=== PATIENT | male | born 2000 | race Caucasian/White ===

== ENCOUNTER 2021-12-13 00:05 | Emergency (ER) | payer OTHER ==
[2021-12-13 00:16] VITALS: TEMP 98.1
--- NOTE | 2021-12-13 00:44 | XR ---
EXAMINATION TYPE: XR chest 2V DATE OF EXAM: 12/13/2021 COMPARISON: 04/04/2010 HISTORY: Chest pain TECHNIQUE: FINDINGS: Heart and mediastinum are normal. Lungs are clear. Diaphragm is normal. Bony thorax is intact. IMPRESSION: Normal chest. No adverse change.
[2021-12-13] MEDS ORDERED: KETOROLAC 15 MG/ML 1 ML VIAL IM STA (01:24)
[2021-12-13 02:02] VITALS: BP 119/72; PULSE 61; RESP 16
[2021-12-13 02:03] LABS: Basophils # (A) 0.1 k/uL (0-0.2); Basophils % (A) 1 %; Eosinophils # (A) 0.2 k/uL (0-0.7); Eosinophils % (A) 1 %; HCT 44.4 % (39.0-53.0); HGB 15.3 gm/dL (13.0-17.5); Lymphocytes # (A) 5.6 k/uL (1.0-4.8); Lymphocytes % (A) 47 %; MCH 30.6 pg (25.0-35.0); MCHC 34.5 g/dL (31.0-37.0); MCV 88.8 fL (80.0-100.0); Mean Platelet Volume 7.2; Monocytes # (A) 0.6 k/uL (0-1.0); Monocytes % (A) 5 %; Neutrophils # (A) 5.3 k/uL (1.3-7.7); Neutrophils % (A) 44 %; Platelet Count 404 k/uL (150-450); RBC 5.01 m/uL (4.30-5.90); RDW 11.8 % (11.5-15.5)
[2021-12-13 02:15] LABS: ALT 22 U/L (4-49); AST 29 U/L (17-59); African American GFR (CKD) >90 (>60 ml/min/1.73 sqM); Albumin 4.9 g/dL (3.5-5.0); Alkaline Phosphatase 68 U/L (38-126); Anion Gap 15 mmol/L; Blood Urea Nitrogen 12 mg/dL (9-20); Calcium 9.9 mg/dL (8.4-10.2); Carbon Dioxide 25 mmol/L (22-30); Chloride 101 mmol/L (98-107); Glucose 95 mg/dL (74-99); Lipase 90 U/L (23-300); Magnesium 2.2 mg/dL (1.6-2.3); Non-African American GFR(CKD) >90 (>60 ml/min/1.73 sqM); Potassium 4.4 mmol/L (3.5-5.1); Sodium 141 mmol/L (137-145); Total Bilirubin 0.7 mg/dL (0.2-1.3); Total Protein 7.2 g/dL (6.3-8.2)
[2021-12-13 02:18] LABS: Partial Thromboplastin Time 26.4 sec (22.0-30.0)
--- NOTE | 2021-12-13 02:43 | ED ---
Chest Pain HPI <Anna Henderson - Last Filed: 12/13/21 02:50> - General Source: patient Mode of arrival: ambulatory <IsauraSue Jenn - Last Filed: 12/15/21 11:25> - General Chief Complaint: Chest Pain Stated Complaint: Chest Pain Time Seen by Provider: 12/13/21 00:15 - History of Present Illness Initial Comments: 21-year-old male with no past medical history presents to the emergency department with chest pain. Reports that it started earlier today. Described as a sharp shooting sensation over the left side of the chest. Pain does not radiate. No personal history of cardiac issues. Denies family history of sudden cardiac . No history of DVT or PE. No Pain or swelling. No recent travel. Denies any fevers. Did not take any medications at home for his pain. No shortness of breath. No fevers, chills or cough. No other alleviating, precipitating or modifying factors (Sue Delarosa) - Related Data Allergies Allergy/AdvReac Type Severity Reaction Status Date / Time No Known Allergies Allergy Verified 12/13/21 00:15 Review of Systems ROS Other: All systems not noted in ROS Statement are negative. <Anna Henderson - Last Filed: 12/13/21 02:50> ROS Other: All systems not noted in ROS Statement are negative. <Sue Delarosa - Last Filed: 12/15/21 11:25> ROS Statement: Those systems with pertinent positive or pertinent negative responses have been documented in the HPI. EKG Findings - EKG Comments: EKG Findings:: EKG demonstrates sinus rhythm with a rate of 78. NM interval 119. QRS 89. QTC 380. Q waves 2, 3, aVF. No acute ST segment elevations <Sue Delarosa - Last Filed: 12/15/21 11:25> Past Medical History Additional Past Medical History / Comment(s): pna as a child History of Any Multi-Drug Resistant Organisms: None Reported Past Surgical History: No Surgical Hx Reported Past Psychological History: No Psychological Hx Reported Smoking Status: Never smoker Past Alcohol Use History: None Reported Past Drug Use History: None Reported <Sue eDlarosa - Last Filed: 12/15/21 11:25> General Exam General appearance: alert, in no apparent distress Head exam: Present: atraumatic, normocephalic, normal inspection Eye exam: Present: normal appearance, PERRL, EOMI. Absent: scleral icterus, conjunctival injection, periorbital swelling ENT exam: Present: normal exam, mucous membranes moist Neck exam: Present: normal inspection. Absent: tenderness, meningismus, lymphadenopathy Respiratory exam: Present: normal lung sounds bilaterally, chest wall tenderness (left sided). Absent: respiratory distress, wheezes, rales, rhonchi, stridor Cardiovascular Exam: Present: regular rate, normal rhythm, normal heart sounds. Absent: systolic murmur, diastolic murmur, rubs, gallop, clicks GI/Abdominal exam: Present: soft, normal bowel sounds. Absent: distended, tenderness, guarding, rebound, rigid Extremities exam: Present: normal inspection, full ROM, normal capillary refill. Absent: tenderness, pedal edema, joint swelling, calf tenderness Back exam: Present: normal inspection Neurological exam: Present: alert, oriented X3, CN II-XII intact Psychiatric exam: Present: normal affect, normal mood Skin exam: Present: warm, dry, intact, normal color. Absent: rash <Sue Delarosa - Last Filed: 12/15/21 11:25> Course Vital Signs 12/13/21 12/13/21 12/13/21 00:13 01:11 02:01 Temperature 98.1 F Pulse Rate 94 61 Pulse Rate [ 94 Pulse Oximetery ] Respiratory 18 16 Rate Blood Pressure 142/90 119/72 O2 Sat by Pulse 98 100 Oximetry Chest Pain MDM <Sue Delarosa - Last Filed: 12/15/21 11:25> - MDM Upon arrival he was placed into room 18. There are history and physical exam was performed. IV access established laboratory studies are conducted. Patient given a dose of Toradol. Laboratory studies are reviewed. Troponin is negative. D-dimer is negative. Chest x-ray demonstrates no acute process. Results are discussed with the patient. Reports improvement in his pain with medication administration. Patient will be discharged home at this time. Instructed to follow up with primary care in 2-4 days. Recommend echo. Return for any new or worsening symptoms. Patient agreeable and discharged home in stable condition (Sue Delarosa) Disposition <Anna Henderson - Last Filed: 12/13/21 02:50> Is patient prescribed a controlled substance at d/c from ED?: No Time of Disposition: 02:43 <Sue Delarosa - Last Filed: 12/15/21 11:25> Clinical Impression: Chest pain Disposition: HOME SELF-CARE Condition: Stable Instructions (If sedation given, give patient instructions): Chest Pain (ED) Additional Instructions: Follow up with your primary care doctor in 2-4 days. I recommend you have an echo of your heart. Take Motrin for pain and return for any new or worsening symptoms Referrals: None,Stated [Primary Care Provider] - 1-2 days [facility] [NON[facility]] - 1-2 days
== END 2021-12-13 02:55 | disposition home or self-care (01) ==
LOC: EC 00:05
DX: R07.9 Chest pain, unspecified (principal)
CPT/HCPCS: 36415; 93005; 85379; 80053; 83690; 83735; 84484; 85025; 85610; 85730; 71046; 99285; 96372; J1885

== ENCOUNTER 2024-06-29 14:42 | Emergency (ER) | payer OTHER ==
[2024-06-29 14:50] VITALS: RESP 18; TEMP 98.7
--- NOTE | 2024-06-29 15:23 | ED ---
Wound/Laceration HPI - General Chief Complaint: Wound/Laceration Stated Complaint: L Hand Injury-[facility] Time Seen by Provider: 06/29/24 15:18 Source: patient, RN notes reviewed Mode of arrival: EMS Limitations: no limitations - History of Present Illness Initial Comments: 24-year-old male sent from work for left hand injury prior to arrival. States he was working on machinery at work when the machine came loose and cut through his left third finger. Last tetanus within 5 years. No other injuries. No blood thinners. He is right-hand dominant. - Related Data Previous Rx's Medication Instructions Recorded Cephalexin [Keflex] 500 mg PO Q12H 7 Days #14 cap 06/29/24 Allergies Allergy/AdvReac Type Severity Reaction Status Date / Time No Known Allergies Allergy Verified 06/29/24 14:50 Review of Systems ROS Statement: Those systems with pertinent positive or pertinent negative responses have been documented in the HPI. ROS Other: All systems not noted in ROS Statement are negative. Past Medical History Additional Past Medical History / Comment(s): pna as a child History of Any Multi-Drug Resistant Organisms: None Reported Past Surgical History: No Surgical Hx Reported Past Psychological History: No Psychological Hx Reported Smoking Status: Never smoker Past Alcohol Use History: None Reported Past Drug Use History: None Reported General Exam Limitations: no limitations General appearance: alert, in no apparent distress Head exam: Present: atraumatic, normocephalic, normal inspection Left Forearm Wrist exam: Present: normal inspection, full ROM. Absent: tenderness, swelling Hand Wrist exam: Present: full ROM, tenderness, swelling. Absent: normal inspection (There is a 7 cm laceration on ventral distal phalanx of third digit extending distally completely through nail with bone exposure.), deformity, dislocation, subungual hematoma Vascular: Present: normal capillary refill, radial pulse. Absent: vascular compromise Neurological exam: Present: alert, oriented X3 Psychiatric exam: Present: normal affect, normal mood Skin exam: Present: warm, dry, intact, normal color. Absent: rash Course Vital Signs 06/29/24 14:46 Temperature 98.7 F Pulse Rate 68 Respiratory 18 Rate Blood Pressure 122/81 O2 Sat by Pulse 97 Oximetry Procedures - Laceration Laceration #1 Consent Obtained: verbal consent Indication: laceration Site: hand Size (cm): 6 Description: irregular Depth: [id number] Anesthetic Used: lidocaine 1%, without epi Anesthesia Technique: nerve block Amount (mls): 4 Pre-repair: wound explored, irrigated extensively, deep structures intact Type of Sutures: nylon Size of Sutures: 4-0 Number of Sutures: 5 Technique: simple, interrupted Patient Tolerated Procedure: well, no complications Additional Comments: Neurovascular intact status post procedure. Due to severe trauma, nail was removed during procedure. Medical Decision Making - Medical Decision Making Was pt. sent in by a medical professional or institution (, PA, SENIOR LEAD DEVELOPER, urgent care, hospital, or fci...) When possible be specific @ -No Did you speak to anyone other than the patient for history (EMS, parent, family, police, friend...)? What history was obtained from this source @ -No Did you review nursing and triage notes (agree or disagree)? Why? @ -I reviewed and agree with nursing and triage notes Were old charts reviewed (outside hosp., previous admission, EMS record, old EKG, old radiological studies, urgent care reports/EKG's, fci records)? Report findings @ -No old charts were reviewed Differential Diagnosis (chest pain, altered mental status, abdominal pain women, abdominal pain men, vaginal bleeding, weakness, fever, dyspnea, syncope, headache, dizziness, GI bleed, back pain, seizure, CVA, palpatations, mental health, musculoskeletal)? @ -Differential Musculoskeletal Muscular strain, contusion, ligament sprain, fracture, arthritis, septic arthritis, bursitis, cellulitis, muscle spasm, nerve compression, DVT, arterial occlusion, herpes zoster, electrolyte abnormality, tumor.... This is not meant to be in all inclusive list EKG interpreted by me (3pts min.). @ -None X-rays interpreted by me (1pt min.). @ -X-ray left hand reveals oblique slightly/laceration through tip of middle finger resulting in oblique fracture involving third distal phalanx tuft 4 mm of ulnar displacement CT interpreted by me (1pt min.). @ -None done U/S interpreted by me (1pt. min.). @ -None done What testing was considered but not performed or refused? (CT, X-rays, U/S, labs)? Why? @ -None What meds were considered but not given or refused? Why? @ -None Did you discuss the management of the patient with other professionals (professionals i.e. , PA, SENIOR LEAD DEVELOPER, lab, RT, psych nurse, social media director, seafood manager, teacher, chemical instrumentation officer, supportive employment case manager)? Give summary @ -No Was smoking cessation discussed for >3mins.? @ -No Was critical care preformed (if so, how long)? @ -No Were there social determinants of health that impacted care today? How? (Homelessness, low income, unemployed, alcoholism, drug addiction, transportation, low edu. Level, literacy, decrease access to med. care, senior care, rehab)? @ -No Was there de-escalation of care discussed even if they declined (Discuss DNR or withdrawal of care, Hospice)? DNR status @ -No What co-morbidities impacted this encounter? (DM, HTN, Smoking, COPD, CAD, Cancer, CVA, ARF, Chemo, Hep., AIDS, mental health diagnosis, sleep apnea, morbid obesity)? @ -None Was patient admitted / discharged? Hospital course, mention meds given and route, prescriptions, significant lab abnormalities, going to OR and other pe rtinent info. @ -Discharge. 24-year-old male presenting for left hand injury prior to arrival he was working on machinery at work. There is a 6 cm laceration extending from ventral aspect of distal fourth phalanx through entire nail with bone exposure. Patient was immediately given dose of IV Ancef for prophylaxis for open fracture. Tetanus was updated. Patient was provided with Toradol and Dilaudid for pain management. X-ray left hand reveals oblique slightly/laceration through tip of middle finger resulting in oblique fracture involving third distal phalanx tuft 4 mm of ulnar displacement. Wound was thoroughly irrigated and nail was removed with 5 sutures placed to left third digit. Wound was appropriately dressed. Appropriate return precautions and follow-up care discussed. Patient was prescribed outpatient course of antibiotics for antibacterial prophylaxis. Given Tylenol 3 starter pack. Appropriate case was discussed with my ED attending Dr. Sher. Undiagnosed new problem with uncertain prognosis? @ -No Drug Therapy requiring intensive monitoring for toxicity (Heparin, Nitro, Insulin, Cardizem)? @ -No Were any procedures done? @ -Yes, 5 sutures placed in nail was removed Diagnosis/symptom? @ -Open fracture of left third distal phalanx with overlying laceration Acute, or Chronic, or Acute on Chronic? @ -Acute Uncomplicated (without systemic symptoms) or Complicated (systemic symptoms)? @ -Uncomplicated Side effects of treatment? @ -No Exacerbation, Progression, or Severe Exacerbation? @ -No Poses a threat to life or bodily function? How? (Chest pain, [place], [place], pneumonia, PE, COPD, DKA, ARF, appy, cholecystitis, CVA, Diverticulitis, Homicidal, Suicidal, threat to staff... and all critical care pts) @ -No Disposition Clinical Impression: Open fracture of finger of left hand Disposition: HOME SELF-CARE Condition: Stable Instructions (If sedation given, give patient instructions): Finger Laceration (ED) Additional Instructions: Take Keflex as prescribed. Take Tylenol threes as needed for pain. Follow-up with health it specialist as discussed. You will need your sutures out in 7 days. Please keep your wound dry for the first 24 hours, then you may change the dressing and gently apply an antibacterial ointment such as bacitracin or Neosporin. Please return to the Emergency Department if symptoms worsen or any other concerns. Prescriptions: Cephalexin [Keflex] 500 mg PO Q12H 7 Days #14 cap Is patient prescribed a controlled substance at d/c from ED?: Yes When asked, does pt state using other controlled substances?: No If prescribed controlled substance>3 days was MAPS reviewed?: Prescribed <3 Days If opioid is for acute pain is fill amount 7 days or less?: Yes Referrals: None,Stated [Primary Care Provider] - 1-2 days Jorgito Linton DO [Doctor of Osteopathic Medicine] - 1-2 days Time of Disposition: 18:46
[2024-06-29] MEDS: KETOROLAC 15 MG/ML 1 ML VIAL IVP STA (15:36)
[2024-06-29] MEDS: HYDROmorphone 1 MG/ML 1 ML SYRINGE IVP STA (15:37)
[2024-06-29] MEDS: LIDOCAINE 1% INJ 10MG/ML (20 ML MDV) SQ ONE (15:40)
[2024-06-29] MEDS: DIPH,PERTUS(ACELL)TETVAC-LF 0.5 ML VIAL IM ONE (15:43)
[2024-06-29] MEDS: ceFAZolin 2 GM in DEXTROSE 5% IN WATER 50 ML IVPB ONE (15:47)
--- NOTE | 2024-06-29 15:53 | XR ---
EXAMINATION TYPE: XR hand complete LT DATE OF EXAM: 06/29/2024 3:45 PM COMPARISON: None CLINICAL INDICATION: Male, 24 years old with history of left hand injury; PHH, pain TECHNIQUE: 3 views FINDINGS: There is an oblique slice through the tip of the left middle finger. This has resulted in a n oblique fracture involving the distal phalangeal tuft. There is 4 mm of ulnar sided displacement. N o additional acute fracture, subluxation, dislocation. No retained radiopaque foreign body seen. IMPRESSION: Oblique slice/laceration through the tip of the middle finger resulting in an oblique fracture involv ing the third distal phalangeal tuft. 4 mm of ulnar displacement. [facility], , 06/29/2024 3:50 PM
[2024-06-29] MEDS: ACET/COD 300 MG/30 MG STARTER PACK 6 TAB BTL PO STA (18:55)
[2024-06-29 19:22] VITALS: BP 106/64; PULSE 91
== END 2024-06-29 19:22 | disposition home or self-care (01) ==
LOC: EC 14:42
DX: S62.635B Displaced fracture of distal phalanx of left ring finger, initial encounter for open fracture (principal); Z23 Encounter for immunization; W31.89XA Contact with other specified machinery, initial encounter
CPT/HCPCS: 73130; 90715; 99283; 96365; 96375; 90471; 12002; J0690; J2003; J1171; J1885